=== PATIENT | female | born 1960 | race Hispanic/Latino ===

== ENCOUNTER → 2017-09-15 | Day surgery (SDC) | payer BC ==
[~2017-09-15] MED LIST: ALLOPURINOL300 MG PO; ATENOLOL-CHLOR1 EAC1 PO; DILTIAZEM 24HR120 M1 PO; FENTANYL CITRATE/PF 100MCG/2 ML INJ ONE; GLIPIZIDE-METF1 EAC2 PO; JANUVIA100 MG PO; KLOR-CON 1010 MEQ PO; MELOXICAM7.5 MG PO; MIDAZOLAM HCL 2 MG/2 ML VIAL ONE; NOVOLIN SQ; OR PHACO EYE KIT ONE; PREOP PHACO EYE KIT ONE; VICTOZA 3-0.6 MG/0.1 SC; Z.0.ATENOLOL50 MG MT; Z.0.BENICAR HCT 401 MT; Z.0.GABAPENTIN300 MG MT; Z.0.OXAPROZIN600 MG MT; Z.0.SIMVASTATIN20 MG MT; Z.1.MECLIZINE HCL25 MT
== END | disposition home or self-care (01) ==
LOC: OR 13:14
PROVIDERS: ATTEND Ophthalmology
DX: H25.12 Age-related nuclear cataract, left eye (principal); I10 Essential (primary) hypertension; E11.40 Type 2 diabetes mellitus with diabetic neuropathy, unspecified; E66.01 Morbid (severe) obesity due to excess calories; Z79.4 Long term (current) use of insulin
CPT/HCPCS: 36415; 66984; 82948; J2250; V2632

== ENCOUNTER → 2017-12-07 | Outpatient (CLI) | payer BC ==
[~2017-12-07] MED LIST changes: -FENTANYL CITRATE/PF 100MCG/2 ML INJ ONE; -MIDAZOLAM HCL 2 MG/2 ML VIAL ONE; -OR PHACO EYE KIT ONE; -PREOP PHACO EYE KIT ONE
== END | disposition home or self-care (01) ==
LOC: RAD 11:17
PROVIDERS: ATTEND Family Medicine
DX: M79.604 Pain in right leg (principal)
CPT/HCPCS: 93971

== ENCOUNTER 2018-03-25 10:00 | Outpatient (RCR) | payer BC | END 2018-03-27 | LOC: PT 10:00 | PROVIDERS: ATTEND Specialist | DX: M17.11 Unilateral primary osteoarthritis, right knee (principal); M25.561 Pain in right knee; M25.661 Stiffness of right knee, not elsewhere classified; M62.81 Muscle weakness (generalized); R26.2 Difficulty in walking, not elsewhere classified ==

== ENCOUNTER 2018-12-03 22:46 | Emergency (ER) | payer BC ==
[~2018-12-03] VITALS: Ht 152.4 cm; Wt 90.7 kg
[2018-12-04 00:35] LABS: BASOPHILS # (AUTO) 0.1 (0.0-0.1); BASOPHILS % 0.5 % (0.0-1.0); EOSINOPHILS # (AUTO) 0.3 (0.0-0.4); EOSINOPHILS % 2.5 % (0.0-6.0); HEMATOCRIT 31.9 % (34.2-44.1); HEMOGLOBIN 9.8 g/dL (12.0-16.0); LYMPHOCYTES # (AUTO) 2.5 (1.0-3.2); LYMPHOCYTES % 22.2 % (18.0-39.1); MEAN CORPUSCULAR HEMOGLOBIN 24.9 pg (28-32); MEAN CORPUSCULAR HGB CONC 30.7 g/dL (31-35); MONOCYTES # (AUTO) 0.7 (0.2-0.8); MONOCYTES % 5.8 % (4.4-11.3); NEUTROPHILS # (AUTO) 7.8 (2.1-6.9); NEUTROPHILS % 68.3 % (38.7-80.0); PLATELET COUNT 226 x10e3/uL (140-360); RED BLOOD COUNT 3.94 x10e6/uL (3.6-5.1); RED CELL DISTRIBUTION WIDTH 14.6 % (11.7-14.4)
[2018-12-04 00:46] LABS: ALBUMIN 3.1 g/dL (3.5-5.0); ALBUMIN/GLOBULIN RATIO 0.8 (0.8-2.0); ANION GAP 10.8 mmol/L (8-16); CALCIUM 9.1 mg/dL (8.4-10.2); CREATININE, SERUM 1.16 mg/dL (0.57-1.11); POTASSIUM 4.8 mmol/L (3.5-5.1)
[2018-12-04] MEDS ORDERED: SODIUM CHLORIDE 0.9% 1000ML 1,000 ML IV SCH (01:30)
[2018-12-04] MEDS ORDERED: SODIUM CHLORIDE 0.9% 1000ML 1,000 ML IV ONE (01:30)
[2018-12-04] MEDS ORDERED: SODIUM CHLORIDE 0.9% 1000ML 1,000 ML ONE (01:33)
[2018-12-04 02:04] LABS: CLARITY,URINE CLEAR (CLEAR); COLOR,URINE YELLOW (YELLOW); LEUKOCYTE ESTERASE ,URINE NEGATIVE (NEGATIVE); NITRITE,URINE NEGATIVE (NEGATIVE)
[2018-12-04 02:05] LABS: BILIRUBIN,URINE NEGATIVE (NEGATIVE); KETONES,URINE NEGATIVE (NEGATIVE); PROTEIN,URINE DIPSTICK 2+ (NEGATIVE); URINE UROBILINOGEN 0.2 mg/dL (0.2 - 1)
[2018-12-04 02:10] LABS: BACTERIA,URINE FEW /HPF; EPITHELIAL CELLS,URINE FEW /LPF; MUCUS,URINE FEW (RARE); WBC,URINE (MAN) 0-5 /HPF (0-5)
[2018-12-04 02:42] VITALS: BP 139/61
== END 2018-12-04 02:50 | disposition home or self-care (01) ==
LOC: ER 22:46
DX: E11.65 Type 2 diabetes mellitus with hyperglycemia (principal); D72.829 Elevated white blood cell count, unspecified
CPT/HCPCS: 36415; 80053; 81001; 85025; 99283; J7030

== ENCOUNTER 2021-01-02 12:03 | Emergency (ER) | payer BC, OTHER ==
[~2021-01-02] VITALS: Ht 152.4 cm; Wt 99.8 kg
[2021-01-02 12:43] LABS: BASOPHILS # (AUTO) 0.1 (0.0-0.1); BASOPHILS % 0.6 % (0.0-1.0); EOSINOPHILS # (AUTO) 0.2 (0.0-0.4); EOSINOPHILS % 1.9 % (0.0-6.0); HEMATOCRIT 32.9 % (34.2-44.1); HEMOGLOBIN 10.1 g/dL (12.0-16.0); LYMPHOCYTES # (AUTO) 1.5 (1.0-3.2); LYMPHOCYTES % 16.9 % (18.0-39.1); MEAN CORPUSCULAR HEMOGLOBIN 23.5 pg (28-32); MEAN CORPUSCULAR HGB CONC 30.7 g/dL (31-35); MEAN CORPUSCULAR VOLUME 76.7 fL (81-99); MONOCYTES # (AUTO) 0.5 (0.2-0.8); MONOCYTES % 5.6 % (4.4-11.3); NEUTROPHILS # (AUTO) 6.6 (2.1-6.9); NEUTROPHILS % 74.4 % (38.7-80.0); PLATELET COUNT 228 x10e3/uL (140-360); RED BLOOD COUNT 4.29 x10e6/uL (3.6-5.1); RED CELL DISTRIBUTION WIDTH 14.8 % (11.7-14.4)
[2021-01-02 13:04] LABS: INR 0.87; PROTHROMBIN TIME 12.4 seconds (11.9-14.5)
[2021-01-02 13:10] LABS: ALBUMIN 3.5 g/dL (3.5-5.0); ALBUMIN/GLOBULIN RATIO 0.9 (0.8-2.0); ANION GAP 13.1 mmol/L (8-16); CALCIUM 8.8 mg/dL (8.4-10.2); CREATININE, SERUM 1.4 mg/dL (0.57-1.11); POTASSIUM 4.1 mmol/L (3.5-5.1)
[2021-01-02 14:16] VITALS: BP 145/52
== END 2021-01-02 14:19 | disposition home or self-care (01) ==
LOC: ER 13:21
DX: R53.1 Weakness (principal); E11.65 Type 2 diabetes mellitus with hyperglycemia; E11.40 Type 2 diabetes mellitus with diabetic neuropathy, unspecified; I10 Essential (primary) hypertension; E78.5 Hyperlipidemia, unspecified; E78.00 Pure hypercholesterolemia, unspecified
CPT/HCPCS: 36415; 70450; 80053; 84484; 85025; 85610; 93005; 99284

== ENCOUNTER 2022-06-27 13:02 | Inpatient (IN) | payer OTHER ==
[~2022-06-27] VITALS: Ht 154.9 cm; Wt 99.8 kg
[2022-06-27] MEDS ORDERED: DICYCLOMINE HCL 20 MG TAB PO ONE (14:45)
[2022-06-27] MEDS ORDERED: ONDANSETRON HCL INJ 2MG/ML 2ML 2 MG/ML VIAL IV PRN ×2 (14:45→17:30)
[2022-06-27 15:01] LABS: BASOPHILS % 0.3 % (0.0-1.0); EOSINOPHILS % 0.1 % (0.0-6.0); HEMATOCRIT 37.6 % (34.2-44.1); HEMOGLOBIN 11.5 g/dL (12.0-16.0); LYMPHOCYTES # (AUTO) 0.8 (1.0-3.2); LYMPHOCYTES % 8.8 % (18.0-39.1); MEAN CORPUSCULAR HGB CONC 30.6 g/dL (31-35); MEAN CORPUSCULAR VOLUME 88.3 fL (81-99); MONOCYTES # (AUTO) 0.4 (0.2-0.8); MONOCYTES % 3.9 % (4.4-11.3); NEUTROPHILS % 86.5 % (38.7-80.0); PLATELET COUNT 168 x10e3/uL (140-360); RED BLOOD COUNT 4.26 x10e6/uL (3.6-5.1); RED CELL DISTRIBUTION WIDTH 13.6 % (11.7-14.4)
[2022-06-27 15:20] LABS: ALBUMIN 3.4 g/dL (3.5-5.0); ANION GAP 17.9 mmol/L (8-16); CALCIUM 8.8 mg/dL (8.4-10.2); CREATININE, SERUM 2.14 mg/dL (0.57-1.11); POTASSIUM 3.9 mmol/L (3.5-5.1)
[2022-06-27 16:41] LABS: CLARITY,URINE SL CLOUDY (CLEAR); COLOR,URINE YELLOW (YELLOW); LEUKOCYTE ESTERASE ,URINE NEGATIVE (NEGATIVE)
[2022-06-27 16:42] LABS: KETONES,URINE NEGATIVE (NEGATIVE); NITRITE,URINE NEGATIVE (NEGATIVE); PROTEIN,URINE DIPSTICK NEGATIVE (NEGATIVE); URINE UROBILINOGEN 0.2 mg/dL (0.2 - 1)
[2022-06-27 16:52] LABS: BACTERIA,URINE MODERATE /HPF; EPITHELIAL CELLS,URINE MODERATE /LPF
[2022-06-27] MEDS ORDERED: DEXTROSE 50% SYRINGE 50 ML IV PRN (17:30)
[2022-06-27] MEDS: SODIUM CHLORIDE 0.9% 1000ML 1,000 ML IV SCH (18:19)
[2022-06-27 20:00] VITALS: BP 94/48
[2022-06-27 20:42] VITALS: BP 98/48
[2022-06-28] VITALS (8 sets, daily range): BP systolic 98–144; BP diastolic 46–65
[2022-06-28] MEDS: SODIUM CHLORIDE 0.9% 1000ML 1,000 ML IV SCH ×3 (02:48→16:59)
[2022-06-28] MEDS: INSULIN REGULAR, HUMAN 100 UNIT/1 ML SQ SCH ×5 (02:53→21:31)
[2022-06-28 06:06] LABS: BASOPHILS % 0.5 % (0.0-1.0); EOSINOPHILS # (AUTO) 0.1 (0.0-0.4); EOSINOPHILS % 1.2 % (0.0-6.0); HEMATOCRIT 35.3 % (34.2-44.1); HEMOGLOBIN 10.7 g/dL (12.0-16.0); LYMPHOCYTES % 17.4 % (18.0-39.1); MEAN CORPUSCULAR HGB CONC 30.3 g/dL (31-35); MEAN CORPUSCULAR VOLUME 89.1 fL (81-99); MONOCYTES # (AUTO) 0.4 (0.2-0.8); MONOCYTES % 6.1 % (4.4-11.3); NEUTROPHILS # (AUTO) 4.4 (2.1-6.9); NEUTROPHILS % 74.5 % (38.7-80.0); PLATELET COUNT 158 x10e3/uL (140-360); RED BLOOD COUNT 3.96 x10e6/uL (3.6-5.1); RED CELL DISTRIBUTION WIDTH 13.5 % (11.7-14.4)
[2022-06-28 06:37] LABS: ANION GAP 15.4 mmol/L (8-16); CALCIUM 8.2 mg/dL (8.4-10.2); CREATININE, SERUM 1.93 mg/dL (0.57-1.11); POTASSIUM 3.4 mmol/L (3.5-5.1)
[2022-06-28] MEDS ORDERED: ATENOLOL-CHLOR1 EAC1 PO (09:48)
[2022-06-28] MEDS ORDERED: METFORMIN HCL500 MG PO (09:49)
[2022-06-28] MEDS ORDERED: HYDRALAZINE HC100 MG PO (09:50)
[2022-06-28] MEDS ORDERED: FUROSEMIDE40 MG PO (09:51)
[2022-06-28] MEDS ORDERED: FERROUS SULFAT325 MG PO (09:53)
[2022-06-28] MEDS ORDERED: FARXIGA5 MG PO (09:54)
[2022-06-28] MEDS ORDERED: LOSARTAN POTAS100 MG PO (09:55)
[2022-06-28] MEDS ORDERED: SIMVASTATIN20 MG PO (09:58)
[2022-06-28] MEDS ORDERED: NOVOLOG MI100 UNIT/1 SC (09:59)
[2022-06-28] MEDS: CIPROFLOXACIN 200 MG/D5W 100ML 100 ML IV SCH ×2 (10:18→21:32)
[2022-06-28] MEDS: METRONIDAZOLE 500MG/NS 100ML 100 ML IV SCH ×2 (14:20→22:47)
[2022-06-28] MEDS: SIMVASTATIN 20 MG TAB PO SCH (21:28)
[2022-06-29] VITALS (7 sets, daily range): BP systolic 122–162; BP diastolic 61–74
[2022-06-29] MEDS: SODIUM CHLORIDE 0.9% 1000ML 1,000 ML IV SCH ×4 (05:30→22:06)
[2022-06-29] MEDS: METRONIDAZOLE 500MG/NS 100ML 100 ML IV SCH ×3 (05:48→22:06)
[2022-06-29 06:48] LABS: ANION GAP 11.4 mmol/L (8-16); CALCIUM 7.8 mg/dL (8.4-10.2); CREATININE, SERUM 1.31 mg/dL (0.57-1.11); POTASSIUM 3.4 mmol/L (3.5-5.1)
[2022-06-29] MEDS: INSULIN REGULAR, HUMAN 100 UNIT/1 ML SQ SCH ×4 (08:50→20:43)
[2022-06-29] MEDS: ALLOPURINOL 300 MG TAB PO SCH (08:51)
[2022-06-29] MEDS: CIPROFLOXACIN 200 MG/D5W 100ML 100 ML IV SCH ×2 (08:52→20:53)
[2022-06-29] MEDS: SIMVASTATIN 20 MG TAB PO SCH (20:53)
[2022-06-30] VITALS (8 sets, daily range): BP systolic 137–189; BP diastolic 62–79
[2022-06-30] MEDS: SODIUM CHLORIDE 0.9% 1000ML 1,000 ML IV SCH (05:30)
[2022-06-30] MEDS: METRONIDAZOLE 500MG/NS 100ML 100 ML IV SCH ×3 (05:30→22:15)
[2022-06-30 05:54] LABS: ANION GAP 12.5 mmol/L (8-16); CALCIUM 8.1 mg/dL (8.4-10.2); CREATININE, SERUM 1.15 mg/dL (0.57-1.11); POTASSIUM 3.5 mmol/L (3.5-5.1)
[2022-06-30] MEDS ORDERED: SODIUM CHLORIDE 0.45% 1,000 ML IV ONE (07:45)
[2022-06-30] MEDS: ALLOPURINOL 300 MG TAB PO SCH (09:07)
[2022-06-30] MEDS: CIPROFLOXACIN 200 MG/D5W 100ML 100 ML IV SCH ×2 (09:07→21:47)
[2022-06-30] MEDS: INSULIN REGULAR, HUMAN 100 UNIT/1 ML SQ SCH ×4 (09:21→21:00)
[2022-06-30] MEDS: SIMVASTATIN 20 MG TAB PO SCH (20:59)
[2022-06-30] MEDS: ATENOLOL 50 MG TAB PO SCH (22:30)
[2022-07-01] VITALS (8 sets, daily range): BP systolic 150–175; BP diastolic 59–87
[2022-07-01] MEDS: METRONIDAZOLE 500MG/NS 100ML 100 ML IV SCH ×3 (05:38→21:42)
[2022-07-01 06:15] LABS: ANION GAP 14.4 mmol/L (8-16); CALCIUM 8.4 mg/dL (8.4-10.2); CREATININE, SERUM 1.02 mg/dL (0.57-1.11); POTASSIUM 3.4 mmol/L (3.5-5.1)
[2022-07-01] MEDS ORDERED: HOME MEDICATION--PATIENTS OWN SC SCH (09:00)
[2022-07-01] MEDS: ALLOPURINOL 300 MG TAB PO SCH (10:11)
[2022-07-01] MEDS: ATENOLOL 50 MG TAB PO SCH ×2 (10:11→17:13)
[2022-07-01] MEDS: CIPROFLOXACIN 200 MG/D5W 100ML 100 ML IV SCH ×2 (10:11→21:42)
[2022-07-01] MEDS: HUMULIN 70/30 VIAL SQ SCH ×2 (11:06→17:47)
[2022-07-01] MEDS: INSULIN REGULAR, HUMAN 100 UNIT/1 ML SQ SCH ×4 (11:10→20:47)
[2022-07-01] MEDS ORDERED: HYDRALAZINE HCL 20 MG/ML VIAL IV PRN (14:15)
[2022-07-01] MEDS ORDERED: HYDRALAZINE HCL 20 MG/ML VIAL IV ONE (14:20)
[2022-07-01] MEDS ORDERED: HYDRALAZINE HCL 20 MG/ML VIAL ONE (14:37)
[2022-07-01] MEDS ORDERED: ACETAMINOPHEN 325 MG TAB PO PRN (15:45)
[2022-07-01 20:05] LABS: BASOPHILS % 0.3 % (0.0-1.0); EOSINOPHILS # (AUTO) 0.1 (0.0-0.4); HEMOGLOBIN 10.1 g/dL (12.0-16.0); LYMPHOCYTES # (AUTO) 1.6 (1.0-3.2); LYMPHOCYTES % 18.3 % (18.0-39.1); MEAN CORPUSCULAR HEMOGLOBIN 27.2 pg (28-32); MEAN CORPUSCULAR HGB CONC 29.7 g/dL (31-35); MEAN CORPUSCULAR VOLUME 91.4 fL (81-99); MONOCYTES # (AUTO) 0.5 (0.2-0.8); MONOCYTES % 5.5 % (4.4-11.3); NEUTROPHILS # (AUTO) 6.5 (2.1-6.9); NEUTROPHILS % 73.9 % (38.7-80.0); PLATELET COUNT 197 x10e3/uL (140-360); RED BLOOD COUNT 3.72 x10e6/uL (3.6-5.1); RED CELL DISTRIBUTION WIDTH 13.8 % (11.7-14.4)
[2022-07-01] MEDS: SIMVASTATIN 20 MG TAB PO SCH (21:00)
[2022-07-01] MEDS ORDERED: ATENOLOL 50 MG TAB PO SCH (21:00)
[2022-07-02] VITALS: BP 148/60
[2022-07-02 04:00] VITALS: BP 145/63
[2022-07-02] MEDS: METRONIDAZOLE 500MG/NS 100ML 100 ML IV SCH (05:08)
[2022-07-02 06:09] LABS: ANION GAP 12.3 mmol/L (8-16); CALCIUM 7.9 mg/dL (8.4-10.2); CREATININE, SERUM 1.27 mg/dL (0.57-1.11); POTASSIUM 3.3 mmol/L (3.5-5.1)
[2022-07-02] MEDS: HUMULIN 70/30 VIAL SQ SCH (07:30)
[2022-07-02 07:54] VITALS: BP 149/76
[2022-07-02 08:02] VITALS: BP 149/76
[2022-07-02] MEDS: CIPROFLOXACIN 200 MG/D5W 100ML 100 ML IV SCH (09:03)
[2022-07-02] MEDS: ALLOPURINOL 300 MG TAB PO SCH (09:04)
[2022-07-02] MEDS: ATENOLOL 50 MG TAB PO SCH (09:04)
[2022-07-02] MEDS: INSULIN REGULAR, HUMAN 100 UNIT/1 ML SQ SCH ×2 (09:11→12:04)
[2022-07-02] MEDS ORDERED: ATENOLOL50 MG PO (10:43)
[2022-07-02 11:13] VITALS: BP 158/59
[2022-07-02] MEDS ORDERED: POTASSIUM CHLORIDE 20 MEQ TAB CR PO NR (12:13)
== END 2022-07-02 13:22 | disposition home or self-care (01) | DRG 641 ==
LOC: ER 13:22 → ERHOLD 17:30 → MED/SURG3 20:35
PROVIDERS: ADMIT Internal Medicine; ATTEND Internal Medicine
DX: E86.0 Dehydration (principal); N17.9 Acute kidney failure, unspecified; K52.9 Noninfective gastroenteritis and colitis, unspecified; Z20.822 Contact with and (suspected) exposure to COVID-19; E11.65 Type 2 diabetes mellitus with hyperglycemia; I10 Essential (primary) hypertension; T38.3X5A Adverse effect of insulin and oral hypoglycemic [antidiabetic] drugs, initial encounter; E11.69 Type 2 diabetes mellitus with other specified complication
CPT/HCPCS: 0223U; 36415; 71045; 74176; 80048; 80053; 81001; 82948; 83605; 83690; 84484; 85025; 87040; 87045; 93005; 96361; 99284; J0360; J2405; J7030

== ENCOUNTER 2024-08-19 12:01 | Observation (INO) | payer OTHER ==
[~2024-08-19] VITALS: Ht 157.5 cm; Wt 80.7 kg
[~2024-08-19 12:01] MED LIST changes: +ACULAR5 ML OD; +AMIODARONE HCL200 MG PO; +ATENOLOL50 MG PO; +CALCITRIOL0.25 MCG PO; +CARDIZEM CD180 MG PO; +CEPHALEXIN250 MG PO; +DOXYCYCLINE HY100 MG PO; +ELIQUIS5 MG PO; +FARXIGA10 MG PO; +FARXIGA5 MG PO; +FERROUS SULFAT325 MG PO; +FLONASE ALLERG9.9 ML INH; +FUROSEMIDE40 MG PO; +HYDRALAZINE HC100 MG PO; +KETOROLAC60 MG/2 ML OD; +LASIX40 MG PO; +LOSARTAN POTAS100 MG PO; +METFORMIN HCL500 MG PO; +METOPROLOL SUCC50 MG PO; +METOPROLOL TART50 MG PO; +NAPROXEN250 MG PO; +NOVOLIN N100 UNIT/4 SC; +NOVOLOG MI100 UNIT/1 SC; +OXYBUTYNIN CHLOR5 MG PO; +PLAVIX75 MG PO; +PREDNISOLONE ACE5 M1 OD; +PROVENTIL HFA6.7 GM INH; +SIMVASTATIN20 MG PO; +ULTRAM 50MG50 MG PO
[2024-08-19] MEDS ORDERED: SODIUM CHLORIDE FLUSH 10 ML SYR IV PRN (12:45)
[2024-08-19 12:58] LABS: BASOPHILS # (AUTO) 0.1 (0.0-0.1); BASOPHILS % 0.6 % (0.0-1.0); EOSINOPHILS # (AUTO) 0.2 (0.0-0.4); HEMATOCRIT 43.1 % (34.2-44.1); HEMOGLOBIN 12.8 g/dL (12.0-16.0); LYMPHOCYTES # (AUTO) 1.4 (1.0-3.2); MEAN CORPUSCULAR HEMOGLOBIN 25.4 pg (28-32); MEAN CORPUSCULAR HGB CONC 29.7 g/dL (31-35); MEAN CORPUSCULAR VOLUME 85.7 fL (81-99); MONOCYTES # (AUTO) 0.4 (0.2-0.8); MONOCYTES % 5.3 % (4.4-11.3); NEUTROPHILS # (AUTO) 6.2 (2.1-6.9); NEUTROPHILS % 74.6 % (38.7-80.0); PLATELET COUNT 152 x10e3/uL (140-360); RED BLOOD COUNT 5.03 x10e6/uL (3.6-5.1); WHITE BLOOD COUNT 8.33 x10e3/uL (4.8-10.8)
[2024-08-19 13:19] LABS: ALBUMIN 3.4 g/dL (3.5-5.0); ALBUMIN/GLOBULIN RATIO 0.9 (0.8-2.0); ANION GAP 13.7 mmol/L (8-16); BILIRUBIN,TOTAL 0.6 mg/dL (0.2-1.2); CALCIUM 9.1 mg/dL (8.4-10.2); CREATININE, SERUM 1.54 mg/dL (0.57-1.11); POTASSIUM 3.7 mmol/L (3.5-5.1); TOTAL PROTEIN 7.1 g/dL (6.5-8.1)
[2024-08-19 13:25] LABS: TROPONIN I 0.013 ng/mL (0-0.300)
[2024-08-19] MEDS: ASPIRIN 81 MG CHEW TAB PO ONE ×2 (13:46→18:43)
[2024-08-19] MEDS ORDERED: SODIUM CHLORIDE FLUSH 10 ML SYR INJ PRN (15:00)
[2024-08-19] MEDS ORDERED: ONDANSETRON HCL INJ 2MG/ML 2ML 2 MG/ML VIAL IV PRN (15:00)
[2024-08-19] MEDS: FUROSEMIDE INJ 10 MG/ML 4 ML VIAL IV SCH (15:21)
[2024-08-19 17:00] VITALS: PULSE 103; RESP 17; TEMP 98.4
[2024-08-19 18:38] VITALS: BP 138/74; PULSE 97; RESP 16; TEMP 98.2; O2SAT 99
[2024-08-19 20:00] VITALS: BP 149/95; PULSE 97; RESP 20; TEMP 98.1; O2SAT 100
[2024-08-19] MEDS ORDERED: ACETAMINOPHEN 325 MG TAB PO PRN (20:15)
[2024-08-19] MEDS ORDERED: HYDRALAZINE HCL 20 MG/ML VIAL IV PRN (20:15)
[2024-08-19] MEDS ORDERED: MAGNESIUM/ALUMINUM/SIMETHICONE 30 ML UDC PO PRN (20:15)
[2024-08-19] MEDS ORDERED: MELATONIN 3 MG TAB PO PRN (20:15)
[2024-08-19] MEDS ORDERED: DOCUSATE SODIUM 100 MG CAP PO PRN (20:15)
[2024-08-19] MEDS ORDERED: GUAIFENESIN/DEXTROMETHORPHAN LIQD 5 ML UDC PO PRN (20:15)
[2024-08-19 20:16] VITALS: BP 138/74; PULSE 97; RESP 16; TEMP 98.2; O2SAT 99
[2024-08-19] MEDS: ATORVASTATIN 40 MG TAB PO SCH (20:52)
[2024-08-19] MEDS: METOPROLOL SUCCINATE 50 MG TAB XL PO ONE (20:54)
[2024-08-19 22:40] VITALS: BP 142/102; PULSE 97; RESP 16; TEMP 98.2; O2SAT 99
[2024-08-20] VITALS (7 sets, daily range): BP systolic 113–140; BP diastolic 70–94; PULSE 85–93; RESP 16–20; TEMP 97.3–98.6; O2SAT 95–99
[2024-08-20 07:02] LABS: BASOPHILS # (AUTO) 0.1 (0.0-0.1); BASOPHILS % 0.6 % (0.0-1.0); EOSINOPHILS # (AUTO) 0.3 (0.0-0.4); EOSINOPHILS % 3.1 % (0.0-6.0); HEMATOCRIT 45.5 % (34.2-44.1); HEMOGLOBIN 13.5 g/dL (12.0-16.0); LYMPHOCYTES # (AUTO) 1.7 (1.0-3.2); LYMPHOCYTES % 17.9 % (18.0-39.1); MEAN CORPUSCULAR HEMOGLOBIN 25.4 pg (28-32); MEAN CORPUSCULAR HGB CONC 29.7 g/dL (31-35); MEAN CORPUSCULAR VOLUME 85.7 fL (81-99); MONOCYTES # (AUTO) 0.6 (0.2-0.8); MONOCYTES % 6.3 % (4.4-11.3); NEUTROPHILS # (AUTO) 6.9 (2.1-6.9); NEUTROPHILS % 71.8 % (38.7-80.0); PLATELET COUNT 167 x10e3/uL (140-360); RED BLOOD COUNT 5.31 x10e6/uL (3.6-5.1); RED CELL DISTRIBUTION WIDTH 14.9 % (11.7-14.4); WHITE BLOOD COUNT 9.61 x10e3/uL (4.8-10.8)
[2024-08-20 07:42] LABS: CHOL/HDL RATIO 2.4 (3.0-3.6)
[2024-08-20 07:44] LABS: ALBUMIN 3.4 g/dL (3.5-5.0); ALBUMIN/GLOBULIN RATIO 0.9 (0.8-2.0); ANION GAP 16.7 mmol/L (8-16); BILIRUBIN,TOTAL 0.7 mg/dL (0.2-1.2); CALCIUM 9.3 mg/dL (8.4-10.2); CREATININE, SERUM 1.61 mg/dL (0.57-1.11); POTASSIUM 3.7 mmol/L (3.5-5.1)
[2024-08-20 07:51] LABS: TROPONIN I 0.009 ng/mL (0-0.300)
[2024-08-20 08:04] LABS: THYROID STIMULATING HORMONE 1.965 uIU/mL (0.350-4.940)
[2024-08-20] MEDS ORDERED: FUROSEMIDE 40 MG TAB PO SCH (09:00)
[2024-08-20] MEDS: APIXABAN 5 MG TABLET PO SCH (09:27)
[2024-08-20] MEDS: LOSARTAN POTASSIUM 100 MG TAB PO SCH (09:27)
[2024-08-20] MEDS: ASPIRIN 81 MG ENTERIC COATED PO SCH (09:27)
[2024-08-20] MEDS: MULTIVITAMINS/MINERALS TAB PO SCH (09:27)
[2024-08-20] MEDS: METOPROLOL SUCCINATE 50 MG TAB XL PO SCH (09:28)
[2024-08-20] MEDS ORDERED: DEXTROSE 50% SYRINGE 50 ML IV PRN (12:15)
[2024-08-20] MEDS: INSULIN REGULAR, HUMAN 100 UNIT/1 ML SQ SCH (15:15)
[2024-08-20 18:40] LABS: TROPONIN I 0.003 ng/mL (0-0.300)
[2024-08-21 00:30] VITALS: BP 135/77; PULSE 96; RESP 18; TEMP 98.1; O2SAT 97
[2024-08-21 04:30] VITALS: BP 131/84; PULSE 98; RESP 18; TEMP 98.2; O2SAT 98
[2024-08-21 07:03] LABS: ANION GAP 17.5 mmol/L (8-16); CALCIUM 9.1 mg/dL (8.4-10.2); CREATININE, SERUM 1.93 mg/dL (0.57-1.11); POTASSIUM 3.5 mmol/L (3.5-5.1)
[2024-08-21 08:00] VITALS: BP 130/74; PULSE 99; RESP 22; TEMP 98; O2SAT 95
[2024-08-21] MEDS: FUROSEMIDE 40 MG TAB PO SCH (08:21)
[2024-08-21 12:00] VITALS: BP 141/81; PULSE 96; RESP 19; TEMP 98.1; O2SAT 98
[2024-08-21 12:28] VITALS: BP 130/74; PULSE 99; RESP 22; TEMP 98; O2SAT 95
[2024-08-21] MEDS ORDERED: COZAAR100 MG PO (13:50)
[2024-08-21] MEDS ORDERED: HUMULIN 70100 UNIT/1 SC (13:50)
[2024-08-21] MEDS ORDERED: ATORVASTATIN CA40 MG PO (13:50)
[2024-08-21] MEDS: NPH, HUMAN INSULIN ISOPHANE 100 UNIT/1 ML 3ML VIAL SQ ONE (14:26)
[2024-08-21] MEDS ORDERED: ONDANSETRON HCL 4 MG ORAL DISINTEGRATING TAB PO PRN (15:30)
== END 2024-08-21 15:15 | disposition home or self-care (01) ==
LOC: ER 12:32 → ERHOLD 14:51 → MED/SURG3 18:24
PROVIDERS: ADMIT Internal Medicine; ATTEND Internal Medicine
DX: R07.89 Other chest pain (principal); I13.0 Hypertensive heart and chronic kidney disease with heart failure and stage 1 through stage 4 chronic kidney disease, or unspecified chronic kidney disease; I50.32 Chronic diastolic (congestive) heart failure; E11.22 Type 2 diabetes mellitus with diabetic chronic kidney disease; N18.32 Chronic kidney disease, stage 3b; Z79.4 Long term (current) use of insulin; H54.40 Blindness, one eye, unspecified eye; R29.6 Repeated falls; Z91.81 History of falling; E11.42 Type 2 diabetes mellitus with diabetic polyneuropathy; E78.5 Hyperlipidemia, unspecified; I48.20 Chronic atrial fibrillation, unspecified; Z79.01 Long term (current) use of anticoagulants; E66.9 Obesity, unspecified; Z68.32 Body mass index [BMI] 32.0-32.9, adult; G47.33 Obstructive sleep apnea (adult) (pediatric)
CPT/HCPCS: 36415 ×3; 71045; 80048; 80053 ×2; 80061; 82550; 82948 ×2; 83880; 84443; 84484 ×2; 85025 ×2; 93005; 93306; 94760; 99284; G0378 ×3; J1940 ×2

== ENCOUNTER 2024-12-13 19:29 | Observation (INO) | payer OTHER ==
[~2024-12-13] VITALS: Ht 152.4 cm; Wt 86.2 kg
[~2024-12-13 19:29] MED LIST changes: +ATORVASTATIN CA40 MG PO; +COZAAR100 MG PO; +HUMULIN 70100 UNIT/1 SC
[2024-12-13 19:30] VITALS: TEMP 98.6
[2024-12-13] MEDS ORDERED: SODIUM CHLORIDE FLUSH 10 ML SYR IV PRN (19:45)
[2024-12-13] MEDS ORDERED: DILTIAZEM HCL 5 MG/ML 5 ML VIAL IV ONE (19:45)
[2024-12-13 19:52] LABS: BASOPHILS % 0.6 % (0.0-1.0); EOSINOPHILS # (AUTO) 0.2 (0.0-0.4); EOSINOPHILS % 3.3 % (0.0-6.0); HEMATOCRIT 42.4 % (34.2-44.1); HEMOGLOBIN 13.5 g/dL (12.0-16.0); LYMPHOCYTES # (AUTO) 1.9 (1.0-3.2); LYMPHOCYTES % 26.7 % (18.0-39.1); MEAN CORPUSCULAR HEMOGLOBIN 26.6 pg (28-32); MEAN CORPUSCULAR HGB CONC 31.8 g/dL (31-35); MEAN CORPUSCULAR VOLUME 83.6 fL (81-99); MONOCYTES # (AUTO) 0.4 (0.2-0.8); MONOCYTES % 5.9 % (4.4-11.3); NEUTROPHILS # (AUTO) 4.4 (2.1-6.9); NEUTROPHILS % 63.2 % (38.7-80.0); PLATELET COUNT 143 x10e3/uL (140-360); RED BLOOD COUNT 5.07 x10e6/uL (3.6-5.1); RED CELL DISTRIBUTION WIDTH 15.3 % (11.7-14.4)
[2024-12-13 20:12] LABS: ALBUMIN 3.9 g/dL (3.5-5.0); ALBUMIN/GLOBULIN RATIO 1.1 (0.8-2.0); ANION GAP 14.1 mmol/L (8-16); BILIRUBIN,TOTAL 0.5 mg/dL (0.2-1.2); CALCIUM 8.1 mg/dL (8.4-10.2); CREATININE, SERUM 1.52 mg/dL (0.57-1.11); POTASSIUM 4.1 mmol/L (3.5-5.1); TOTAL PROTEIN 7.3 g/dL (6.5-8.1)
[2024-12-13 20:18] LABS: TROPONIN I 0.001 ng/mL (0-0.300)
[2024-12-13] MEDS ORDERED: SODIUM CHLORIDE FLUSH 10 ML SYR INJ PRN (21:15)
[2024-12-13] MEDS ORDERED: ONDANSETRON HCL INJ 2MG/ML 2ML 2 MG/ML VIAL IV PRN (21:15)
[2024-12-13] MEDS: METOPROLOL TARTRATE INJ 1 MG/ML VIAL IV ONE (21:44)
[2024-12-13] MEDS: FUROSEMIDE INJ 10 MG/ML 4 ML VIAL IV ONE (21:44)
[2024-12-13 23:15] VITALS: PULSE 95; RESP 16
[2024-12-13] MEDS ORDERED: METOPROLOL TARTRATE INJ 1 MG/ML VIAL IV PRN (23:15)
[2024-12-14] VITALS (8 sets, daily range): BP systolic 112–144; BP diastolic 68–94; PULSE 83–95; RESP 17–18; TEMP 97.9–98.3; O2SAT 97–100
[2024-12-14] MEDS ORDERED: ALENDRONATE SOD70 MG PO (00:08)
[2024-12-14] MEDS ORDERED: ENTRESTO 24 MG1 EACH PO (00:08)
[2024-12-14] MEDS ORDERED: METOPROLOL SUC100 MG PO (00:08)
[2024-12-14] MEDS ORDERED: OXYBUTYNIN CHLOR5 M1 PO (00:08)
[2024-12-14 05:32] LABS: BASOPHILS # (AUTO) 0.1 (0.0-0.1); BASOPHILS % 0.7 % (0.0-1.0); EOSINOPHILS # (AUTO) 0.3 (0.0-0.4); EOSINOPHILS % 3.3 % (0.0-6.0); HEMATOCRIT 41.5 % (34.2-44.1); HEMOGLOBIN 13.1 g/dL (12.0-16.0); LYMPHOCYTES # (AUTO) 1.6 (1.0-3.2); LYMPHOCYTES % 21.7 % (18.0-39.1); MEAN CORPUSCULAR HEMOGLOBIN 26.8 pg (28-32); MEAN CORPUSCULAR HGB CONC 31.6 g/dL (31-35); MONOCYTES # (AUTO) 0.5 (0.2-0.8); MONOCYTES % 6.2 % (4.4-11.3); NEUTROPHILS # (AUTO) 5.1 (2.1-6.9); NEUTROPHILS % 67.7 % (38.7-80.0); PLATELET COUNT 143 x10e3/uL (140-360); RED BLOOD COUNT 4.88 x10e6/uL (3.6-5.1); RED CELL DISTRIBUTION WIDTH 15.2 % (11.7-14.4); WHITE BLOOD COUNT 7.57 x10e3/uL (4.8-10.8)
[2024-12-14 06:06] LABS: TROPONIN I 0.003 ng/mL (0-0.300)
[2024-12-14 06:08] LABS: ALBUMIN 3.5 g/dL (3.5-5.0); ALBUMIN/GLOBULIN RATIO 1.1 (0.8-2.0); ANION GAP 14.5 mmol/L (8-16); BILIRUBIN,TOTAL 0.6 mg/dL (0.2-1.2); CREATININE, SERUM 1.43 mg/dL (0.57-1.11); POTASSIUM 3.5 mmol/L (3.5-5.1); TOTAL PROTEIN 6.6 g/dL (6.5-8.1)
[2024-12-14] MEDS ORDERED: LOSARTAN POTASSIUM 100 MG TAB PO SCH (09:00)
[2024-12-14] MEDS ORDERED: DEXTROSE 50% SYRINGE 50 ML IV PRN (10:00)
[2024-12-14] MEDS: SACUBITRIL/VALSARTAN 24MG/26MG 1 EA TAB PO SCH (10:57)
[2024-12-14] MEDS: METOPROLOL SUCCINATE 50 MG TAB XL PO SCH (10:58)
[2024-12-14] MEDS: APIXABAN 5 MG TABLET PO SCH (10:58)
[2024-12-14] MEDS: FUROSEMIDE 40 MG TAB PO SCH (10:58)
[2024-12-14] MEDS: HUMULIN 70/30 VIAL SQ SCH ×2 (11:07→21:00)
[2024-12-14] MEDS: INSULIN REGULAR, HUMAN 100 UNIT/1 ML SQ SCH (11:11)
[2024-12-14 14:47] LABS: TROPONIN I 0.003 ng/mL (0-0.300)
[2024-12-14] MEDS: ATORVASTATIN 40 MG TAB PO SCH (21:18)
[2024-12-15 04:00] VITALS: BP 146/92; PULSE 97; RESP 18; TEMP 98.3; O2SAT 99
[2024-12-15 08:10] VITALS: BP 122/60; PULSE 82; RESP 18; TEMP 98.4; O2SAT 98
[2024-12-15 08:20] VITALS: BP 122/60; PULSE 82; RESP 18; TEMP 98.4; O2SAT 98
[2024-12-15 09:16] LABS: TROPONIN I 0.011 ng/mL (0-0.300)
[2024-12-15 09:34] VITALS: BP 122/60
[2024-12-15] MEDS: SPIRONOLACTONE 25 MG TAB PO SCH (14:05)
== END 2024-12-15 17:05 | disposition home or self-care (01) ==
LOC: ER 19:34 → ERHOLD 21:10 → MED/SURG 23:36
PROVIDERS: ADMIT Internal Medicine; ATTEND Internal Medicine
DX: I48.20 Chronic atrial fibrillation, unspecified (principal); R07.9 Chest pain, unspecified; I13.0 Hypertensive heart and chronic kidney disease with heart failure and stage 1 through stage 4 chronic kidney disease, or unspecified chronic kidney disease; E11.22 Type 2 diabetes mellitus with diabetic chronic kidney disease; N18.9 Chronic kidney disease, unspecified; I50.33 Acute on chronic diastolic (congestive) heart failure; Z79.4 Long term (current) use of insulin; Z79.01 Long term (current) use of anticoagulants; E11.42 Type 2 diabetes mellitus with diabetic polyneuropathy; E78.5 Hyperlipidemia, unspecified; E66.9 Obesity, unspecified; Z68.37 Body mass index [BMI] 37.0-37.9, adult; G47.33 Obstructive sleep apnea (adult) (pediatric); H54.40 Blindness, one eye, unspecified eye
CPT/HCPCS: 36415 ×2; 71045; 80053 ×2; 82550 ×2; 82948; 83880; 84484 ×3; 85025 ×2; 93005; 94760; 99284; G0378 ×3; J1940

== ENCOUNTER 2025-03-19 13:35 | Observation (INO) | payer OTHER ==
[~2025-03-19] VITALS: Ht 152.4 cm; Wt 86.2 kg
[~2025-03-19 13:35] MED LIST changes: +ALENDRONATE SOD70 MG PO; +ENTRESTO 24 MG1 EACH PO; +METOPROLOL SUC100 MG PO; +OXYBUTYNIN CHLOR5 M1 PO
[2025-03-19 13:46] VITALS: TEMP 98.2
[2025-03-19 14:08] LABS: BASOPHILS % 0.6 % (0.0-1.0); EOSINOPHILS # (AUTO) 0.2 (0.0-0.4); EOSINOPHILS % 2.5 % (0.0-6.0); HEMATOCRIT 40.3 % (34.2-44.1); HEMOGLOBIN 12.4 g/dL (12.0-16.0); LYMPHOCYTES # (AUTO) 1.2 (1.0-3.2); MEAN CORPUSCULAR HEMOGLOBIN 25.2 pg (28-32); MEAN CORPUSCULAR HGB CONC 30.8 g/dL (31-35); MEAN CORPUSCULAR VOLUME 81.9 fL (81-99); MONOCYTES # (AUTO) 0.4 (0.2-0.8); MONOCYTES % 5.2 % (4.4-11.3); NEUTROPHILS % 73.4 % (38.7-80.0); PLATELET COUNT 153 x10e3/uL (140-360); RED BLOOD COUNT 4.92 x10e6/uL (3.6-5.1); RED CELL DISTRIBUTION WIDTH 14.6 % (11.7-14.4); WHITE BLOOD COUNT 6.76 x10e3/uL (4.8-10.8)
[2025-03-19 14:21] LABS: INR 1.05; PROTHROMBIN TIME 14.6 seconds (11.9-14.5)
[2025-03-19 14:22] LABS: PARTIAL THROMBOPLASTIN TIME 35.6 seconds (23.8-35.5)
[2025-03-19 14:33] LABS: ALBUMIN 3.6 g/dL (3.5-5.0); ANION GAP 15.7 mmol/L (8-16); BILIRUBIN,TOTAL 0.6 mg/dL (0.2-1.2); CALCIUM 8.5 mg/dL (8.4-10.2); CREATININE, SERUM 1.71 mg/dL (0.57-1.11); MAGNESIUM 2.4 MG/DL (1.3-2.1); POTASSIUM 3.7 mmol/L (3.5-5.1); TOTAL PROTEIN 7.1 g/dL (6.5-8.1)
[2025-03-19 14:40] LABS: TROPONIN I 0.006 ng/mL (0-0.300)
[2025-03-19] MEDS: METOPROLOL TARTRATE 25 MG TAB PO ONE (15:00)
[2025-03-19 17:00] VITALS: RESP 18
[2025-03-19 18:40] VITALS: PULSE 97
[2025-03-19 21:00] VITALS: BP 123/81; PULSE 94; RESP 18; O2SAT 97
[2025-03-19] MEDS ORDERED: HYDRALAZINE HCL 20 MG/ML VIAL IV PRN (23:45)
[2025-03-20] VITALS (8 sets, daily range): BP systolic 99–142; BP diastolic 66–93; PULSE 87–118; RESP 16–19; TEMP 97.4–98.3; O2SAT 99–100
[2025-03-20] MEDS ORDERED: DEXTROSE 50% SYRINGE 50 ML IV PRN
[2025-03-20] MEDS ORDERED: NITROGLYCERIN 0.2 MG/HR PATCH TOP SCH
[2025-03-20] MEDS: ENOXAPARIN INJ 80 MG/0.8 ML SYR SC SCH (00:21)
[2025-03-20] MEDS: Morphine 4mg INJECTION 4 MG/ML INJ IV PRN (00:21)
[2025-03-20 00:58] LABS: TROPONIN I 0.004 ng/mL (0-0.300)
[2025-03-20] MEDS: NITROGLYCERIN 0.2 MG/HR PATCH TOP SCH (02:26)
[2025-03-20 06:44] LABS: BASOPHILS # (AUTO) 0.1 (0.0-0.1); BASOPHILS % 0.7 % (0.0-1.0); EOSINOPHILS # (AUTO) 0.3 (0.0-0.4); EOSINOPHILS % 4.3 % (0.0-6.0); HEMATOCRIT 40.5 % (34.2-44.1); HEMOGLOBIN 12.1 g/dL (12.0-16.0); LYMPHOCYTES # (AUTO) 1.6 (1.0-3.2); LYMPHOCYTES % 23.3 % (18.0-39.1); MEAN CORPUSCULAR HEMOGLOBIN 25.2 pg (28-32); MEAN CORPUSCULAR HGB CONC 29.9 g/dL (31-35); MEAN CORPUSCULAR VOLUME 84.4 fL (81-99); MONOCYTES # (AUTO) 0.5 (0.2-0.8); NEUTROPHILS # (AUTO) 4.5 (2.1-6.9); NEUTROPHILS % 64.4 % (38.7-80.0); PLATELET COUNT 141 x10e3/uL (140-360); RED CELL DISTRIBUTION WIDTH 14.6 % (11.7-14.4); WHITE BLOOD COUNT 7.01 x10e3/uL (4.8-10.8)
[2025-03-20 07:17] LABS: ALBUMIN 3.3 g/dL (3.5-5.0); ANION GAP 13.7 mmol/L (8-16); BILIRUBIN,TOTAL 0.6 mg/dL (0.2-1.2); CALCIUM 8.2 mg/dL (8.4-10.2); CREATININE, SERUM 1.51 mg/dL (0.57-1.11); POTASSIUM 3.7 mmol/L (3.5-5.1); TOTAL PROTEIN 6.5 g/dL (6.5-8.1)
[2025-03-20 07:46] LABS: TROPONIN I 0.005 ng/mL (0-0.300)
[2025-03-20] MEDS ORDERED: APIXABAN 5 MG TABLET PO SCH (09:00)
[2025-03-20] MEDS ORDERED: NON-FORMULARY MEDICATION (Dapagliflozin Propanediol (Farxiga) 10 MG) PO SCH (09:00)
[2025-03-20] MEDS ORDERED: SACUBITRIL/VALSARTAN 24MG/26MG 1 EA TAB PO SCH (09:00)
[2025-03-20] MEDS ORDERED: FLUTICASONE PROPIONATE NASAL SPRAY NS SCH (09:00)
[2025-03-20] MEDS: FUROSEMIDE 40 MG TAB PO SCH (10:00)
[2025-03-20] MEDS: SACUBITRIL/VALSARTAN 24MG/26MG 1 EA TAB PO SCH (10:00)
[2025-03-20] MEDS: CALCITRIOL 0.25 MCG CAP PO SCH (10:00)
[2025-03-20] MEDS: OXYBUTYNIN CHLORIDE 5 MG TAB PO SCH (10:00)
[2025-03-20] MEDS: METOPROLOL SUCCINATE 50 MG TAB XL PO SCH (10:01)
[2025-03-20] MEDS: PREDNISOLONE ACETATE 1% OPTH SUSP 5 ML BTL OP SCH (10:02)
[2025-03-20] MEDS: INSULIN LISPRO 100 UNIT/1 ML 3ML VIAL SQ SCH (10:10)
[2025-03-20] MEDS: APIXABAN 5 MG TABLET PO SCH (17:34)
[2025-03-20] MEDS: AMIODARONE HCL 200 MG TAB PO SCH (17:34)
[2025-03-20] MEDS ORDERED: ATORVASTATIN 40 MG TAB PO SCH (21:00)
[2025-03-21 00:11] VITALS: BP 139/82; PULSE 84; RESP 16; TEMP 98.1; O2SAT 100
[2025-03-21 04:30] VITALS: BP 157/90; PULSE 95; RESP 20; TEMP 97.9; O2SAT 100
[2025-03-21 08:03] VITALS: BP 119/72; PULSE 96; RESP 18; TEMP 97.9; O2SAT 100
[2025-03-21 08:30] VITALS: BP 119/72; PULSE 96; RESP 18; TEMP 97.9; O2SAT 100
[2025-03-21] MEDS ORDERED: ELIQUIS5 MG PO (08:40)
[2025-03-21] MEDS: FARXIGA 10 MG TAB PO SCH (09:00)
[2025-03-21 09:02] VITALS: BP 119/72; PULSE 96
[2025-03-21] MEDS: APIXABAN 5 MG TABLET PO SCH (09:03)
== END 2025-03-21 10:25 | disposition home or self-care (01) ==
LOC: ER 14:01 → ERHOLD 15:36 → MED/SURG3 21:53
PROVIDERS: ADMIT Internal Medicine; ATTEND Internal Medicine
DX: R07.9 Chest pain, unspecified (principal); I48.20 Chronic atrial fibrillation, unspecified; N17.9 Acute kidney failure, unspecified; I13.0 Hypertensive heart and chronic kidney disease with heart failure and stage 1 through stage 4 chronic kidney disease, or unspecified chronic kidney disease; I50.32 Chronic diastolic (congestive) heart failure; E11.22 Type 2 diabetes mellitus with diabetic chronic kidney disease; N18.9 Chronic kidney disease, unspecified; Z79.4 Long term (current) use of insulin; E11.42 Type 2 diabetes mellitus with diabetic polyneuropathy; E83.42 Hypomagnesemia; Z79.01 Long term (current) use of anticoagulants
CPT/HCPCS: 36415 ×2; 71045; 80053 ×2; 82550; 83735; 84484 ×2; 85025 ×2; 85610; 85730; 93005; 99284; G0378 ×3; J1650; J2270